=== PATIENT | male | born 1980 | race Caucasian/White ===

== ENCOUNTER → 2016-04-15 | Emergency (ER) | payer SELFPAY | LOC: ED SRH 17:19 | DX: Z53.21 Procedure and treatment not carried out due to patient leaving prior to being seen by health care provider (principal) ==

== ENCOUNTER 2016-05-08 17:19 | Emergency (ER) | payer OTHER ==
--- NOTE | 2016-05-08 17:52 | ED NURSING NOTES ---
Clinical Report - Nurses [facility] [address] [place] [address] 05/08/2016 17:21 Patient: LISA TOURE TRIAGE Triage time 17:May 08 2016. Acuity: LEVEL 4. Chief Complaint: LEFT LOWER TOOTHACHE. Alert. No acute distress. --17:29 Ghada Hawkins R.N. 17:25 05/08/16. BP: 130/75. HR: 115. RR: 18. O2 saturation: 100%. Temp: 98.1 F. Pain level now 10. --17:29 Ghada Hawkins R.N. Weight: 63.5 kg stated. Height/Length: 71 inches Per Patient. BMI: 19.5. --17:24 Ghada Hawkins R.N. Medications None. --17:27 Ghada Hawkins R.N. Medication/allergy information source: the patient. --17:29 Ghada Hawkins R.N. Allergies Augmentin.(hives) Tramadol. ("all bad" "I puke blood") --17:27 Ghada Hawkins R.N. History Arrived by private vehicle. Historian: patient. Accompanied by friend. Primary physician (none). ( "Feels like an Abcess in my left lower tooth". Rash in the right side of the arm.). This started yesterday. He has no dental appointment scheduled. 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 PAST MEDICAL HX: Immunizations: up-to-date. SOCIAL HX: Heavy tobacco smoker (cigarette)- less than 1 pack per day. History of drug use: marijuana. No alcohol use. FALL RISK ASSESSMENT: Fall risk assessment completed. No fall risk identified. NUTRITIONAL RISK ASSESSMENT: The nutritional risk assessment revealed no deficiencies. FUNCTIONAL ASSESSMENT: Functional assessment: no impairments noted. LEARNING NEEDS ASSESSMENT: The learning needs assessment revealed no barriers. SKIN INTEGRITY ASSESSMENT: Skin integrity risk assessment completed. No skin integrity risk identified. --17:29 Ross, Ghada, R.N. PROBLEMS: Back Pain. Sciatica. Abdominal Pain. Laceration. Depression. Anxiety Reaction. Fractured Phalanx (Toe). Scabies. Insect Bite(s). Burn. Crush Injury, Upper Extremity. Abrasion(s). Tetanus Status. Immunizations. Asthma. --17:28 Ghada Hawkins R.N. ADDITIONAL SURGERIES: Hand surgery . Left hand surgery. --17:28 Ghada Hawkins R.N. Interventions ID band on patient. To room. --17:29 Ghada Hawkins R.N. PHYSICAL ASSESSMENT Ambulatory to room. GENERAL / NEURO / PSYCH: Alert. Oriented X 4. Appears in no acute distress. HEENT: Dental decay (left lower molar area). SKIN: Skin rash (Right Forearm). --18:02 Ghada Hawkins R.N. NURSING PROGRESS NOTES Patient ready for evaluation- ED physician and STAGING TECHNICIAN notified. --17:30 Ghada Hawkins R.N. DISPOSITION / DISCHARGE Departure time: 18:May 08 2016. Condition at departure: improved and stable. No learning barriers present. Patient verbalized understanding. Written instructions provided in Arabic. The patient was discharged by the nurse practitioner. He was discharged home and accompanied by materials specialist. He left the Emergency Department ambulatory. Integrated Logistics Programs Director driving. --18:02 Ghada Hawkins R.N. Locked/Released at 05/10/2016 8:38 by Gloria Alfaro R.N.
--- NOTE | 2016-05-08 17:52 | ED CLINICAL REPORT ---
Clinical Report - Physicians/Mid Levels [facility] [address] [place] [address] 05/08/2016 17:21 Patient: LISA TOURE Time Seen: 17:30; initial patient contact, initial documentation, patient care assumed. Arrived- By private vehicle. Historian- patient. HISTORY OF PRESENT ILLNESS Chief Complaint: DENTAL PAIN. This started years and is still present (worse since yesterday). Pain described as severe. No sore throat, mouth sores or nasal discharge or congestion. He has had severe toothache involving a single tooth (left lower incisor). He has had swelling of the face. (tooth broke long time ago, no dentist and states he doesn't know where one is, yesterday tooth started to hurt and face is swollen). Similar symptoms previously: Chronically, as bad. Recent medical care: Not recently seen/assessed. REVIEW OF SYSTEMS No fever or difficulty breathing. He has had a mild skin rash consisting of "redness" located on the right forearm (yesterday). Skin rash is not itchy or painful. All systems otherwise negative, except as recorded above. PAST HISTORY See nurses notes. PROBLEMS: Back Pain. Sciatica. Abdominal Pain. Laceration. Depression. Anxiety Reaction. Fractured Phalanx (Toe). Scabies. Insect Bite(s). Burn. Crush Injury, Upper Extremity. Abrasion(s). Tetanus Status. Immunizations. Asthma. --17:28 Ghada Hawkins R.N. ADDITIONAL SURGERIES: Hand surgery . Left hand surgery. --17:28 Ghada Hawkins R.N. SOCIAL HISTORY Heavy tobacco smoker. History of heavy drug use: methamphetamines, marijuana. No alcohol use. No recent travel. Is a local resident. FAMILY HISTORY Negative. ADDITIONAL NOTES The nursing notes have been reviewed with agreement regarding the chief complaint, HPI, ROS, PMH and patient medications and allergies. PHYSICAL EXAM Vital Signs: 05/08/2016 17:25 BP: 130/75. HR: 115. RR: 18. O2 saturation: 100%. Temp: 98.1 F. Have been reviewed as abnormal and appear to be correct. Blood pressure normal. Tachycardic. Respiratory rate normal. Temperature normal. Oxygen saturation normal. Appearance: Alert. No acute distress. Head: Normal external inspection. Eyes: Pupils equal, round and reactive to light. Conjunctivae and eyelids normal. ENT: Extensive dental decay (lower left lateral incisor). Ears normal. Nose normal. Pharynx normal. Lips normal. Gums normal. No trismus present. Uvula midline. Neck: Normal inspection. Trachea midline. No adenopathy. Thyroid normal. Neck supple. Respiratory: No respiratory distress. Skin: Normal skin color. No rash. Normal skin turgor. Extremities: Extremities exhibit normal ROM. Extremities nontender. Neuro: Oriented X 3. No motor deficit. No sensory deficit. PROGRESS AND PROCEDURES Course of Care: 17:53 05/08/16. pt has ginette, with recommendations, no narcs or controlled substances, pt enrolled in [facility], [place], behavioral [facility], see report for full details. Patient counseled in person regarding the patient's stable condition and diagnosis. 17:51. Differential Diagnosis: I considered contact dermatitis, cellulitis, impetigo, yeast infection, type 1 hypersensitivity, drug eruption, toxic epidermal necrolysis, idiopathic urticaria, erythema multiforme, erythema nodosum, chemical exposure, bite(s) and sting as a possible cause of rash in this patient. This is a partial list of diagnoses considered. Other possible considerations: substance abuse, dental abscess, caries, pain. Disposition: Discharged home in good and unchanged condition. Condition: good and stable. CLINICAL IMPRESSION Dental caries (extensive decay) Mild irritative contact dermatitis. INSTRUCTIONS Warnings: GENERAL WARNINGS: Return or contact your physician immediately if your condition worsens or changes unexpectedly, if not improving as expected, or if other problems arise. Specifically return if problem worsens. Prescription Medications: Keflex 500 mg: take 1 capsule orally every 6 hours for 7 days. No refills. Substitution is permissible. Naprosyn 500 mg tablets: take 1 orally every 12 hours as needed for pain. Dispense twenty (20). No refills. Substitution is permissible. Follow-up: Follow up with a dentist in about three days even if well. Call for an appointment. Summary of care provided to patient. Understanding of the discharge instructions verbalized by patient. (Electronically signed by Stacia Menjivar A.R.N.P. 05/08/2016 21:14)
--- NOTE | 2016-05-08 17:52 | ED NURSING NOTES ---
Clinical Report - Nurses [facility] [address] [place] [address] 05/08/2016 17:21 Patient: LISA TOURE TRIAGE Triage time 17:May 08 2016. Acuity: LEVEL 4. Chief Complaint: LEFT LOWER TOOTHACHE. Alert. No acute distress. --17:29 Ghada Hawkins R.N. 17:25 05/08/16. BP: 130/75. HR: 115. RR: 18. O2 saturation: 100%. Temp: 98.1 F. Pain level now 10. --17:29 Ghada Hawkins R.N. Weight: 63.5 kg stated. Height/Length: 71 inches Per Patient. BMI: 19.5. --17:24 Ghada Hawkins R.N. Medications None. --17:27 Ghada Hawkins R.N. Medication/allergy information source: the patient. --17:29 Ghada Hawkins R.N. Allergies Augmentin.(hives) Tramadol. ("all bad" "I puke blood") --17:27 Ghada Hawkins R.N. History Arrived by private vehicle. Historian: patient. Accompanied by friend. Primary physician (none). ( "Feels like an Abcess in my left lower tooth". Rash in the right side of the arm.). This started yesterday. He has no dental appointment scheduled. 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 PAST MEDICAL HX: Immunizations: up-to-date. SOCIAL HX: Heavy tobacco smoker (cigarette)- less than 1 pack per day. History of drug use: marijuana. No alcohol use. FALL RISK ASSESSMENT: Fall risk assessment completed. No fall risk identified. NUTRITIONAL RISK ASSESSMENT: The nutritional risk assessment revealed no deficiencies. FUNCTIONAL ASSESSMENT: Functional assessment: no impairments noted. LEARNING NEEDS ASSESSMENT: The learning needs assessment revealed no barriers. SKIN INTEGRITY ASSESSMENT: Skin integrity risk assessment completed. No skin integrity risk identified. --17:29 Ross, Ghada, R.N. PROBLEMS: Back Pain. Sciatica. Abdominal Pain. Laceration. Depression. Anxiety Reaction. Fractured Phalanx (Toe). Scabies. Insect Bite(s). Burn. Crush Injury, Upper Extremity. Abrasion(s). Tetanus Status. Immunizations. Asthma. --17:28 Ghada Hawkins R.N. ADDITIONAL SURGERIES: Hand surgery . Left hand surgery. --17:28 Ghada Hawkins R.N. Interventions ID band on patient. To room. --17:29 Ghada Hawkins R.N. PHYSICAL ASSESSMENT Ambulatory to room. GENERAL / NEURO / PSYCH: Alert. Oriented X 4. Appears in no acute distress. HEENT: Dental decay (left lower molar area). SKIN: Skin rash (Right Forearm). --18:02 Ghada Hawkins R.N. NURSING PROGRESS NOTES Patient ready for evaluation- ED physician and FOOD BROKER notified. --17:30 Ghada Hawkins R.N. DISPOSITION / DISCHARGE Departure time: 18:May 08 2016. Condition at departure: improved and stable. No learning barriers present. Patient verbalized understanding. Written instructions provided in Thai. The patient was discharged by the nurse practitioner. He was discharged home and accompanied by switchboard mechanic. He left the Emergency Department ambulatory. Miter Saw Operator driving. --18:02 Ghada Hawkins R.N. Locked/Released at 05/10/2016 8:38 by Gloria Alfaro R.N.
--- NOTE | 2016-05-10 08:38 | ED MED RECONCILIATION SUMMARY ---
Patient: LISA TOURE Medication Reconciliation Report Merged With [facility] VisitID: [id number] [address] [place] [address] 35y, M Registration Date/Time: 05/08/2016 Weight: 63.5 kg Height/Length: 71 in. BMI: 19.5 ALLERGIES: Augmentin, Tramadol The patient's Home Medications are listed below: NONE. The source(s) of the original Home Medication information: patient The following Medications were given to the patient in the Emergency Department: None. The following Medications were prescribed to the patient: Keflex 500 mg: take 1 capsule orally every 6 hours for 7 days. No refills. Substitution is permissible. -- Stacia Menjivar A.R.N.P. Naprosyn 500 mg tablets: take 1 orally every 12 hours as needed for pain. Dispense twenty (20). No refills. Substitution is permissible. -- Stacia Menjivar A.RValentinaN.P.
--- NOTE | 2016-05-10 08:38 | ED DISCHARGE INSTRUCTIONS ---
Patient: LISA TOURE General Instructions [facility] VisitID: [id number] [place] [address] 35y, M Registration Date/Time: 05/08/2016 Dental caries (extensive decay) Mild irritative contact dermatitis. INSTRUCTIONS Warnings: GENERAL WARNINGS: Return or contact your physician immediately if your condition worsens or changes unexpectedly, if not improving as expected, or if other problems arise. Specifically return if problem worsens. Prescription Medications: Keflex 500 mg: take 1 capsule orally every 6 hours for 7 days. No refills. Substitution is permissible. Naprosyn 500 mg tablets: take 1 orally every 12 hours as needed for pain. Dispense twenty (20). No refills. Substitution is permissible. Follow-up: Follow up with a dentist in about three days even if well. Call for an appointment. Summary of care provided to patient. Understanding of the discharge instructions verbalized by patient. ADDITIONAL INFORMATION Dental Cavity A dental cavity is a pit or crater in the enamel surface of the tooth. This exposes the sensitive inner layer of the tooth and causes pain. If untreated, the cavity will get bigger and may cause an infection or abscess in the root of the tooth. An infection in the tooth is a much more serious problem and may require a root canal or removal of the entire tooth. The tooth pain may be made worse by drinking hot or cold fluids. It may spread from the tooth to the ear or jaw on the same side. Home Care: Avoid hot and cold foods, and liquids since your tooth may be sensitive to temperature changes. If your tooth is chipped or cracked, or if there is a large open cavity, apply OIL OF CLOVES (available aroi-cxp-kmiifpr in drug stores) directly to the tooth to reduce pain. Some pharmacies carry an vaak-sjl-fevsicj "toothache kit." This contains oil of cloves and a paste, which can be applied over the exposed tooth to decrease sensitivity. An ice pack on your jaw over the sore area may help to reduce pain. You may use acetaminophen (Tylenol) or ibuprofen (Motrin, Advil) to control pain, unless another pain medicine was prescribed. [ NOTE: If you have liver disease or ever had a stomach ulcer, talk with your doctor before using these medicines.] If you have signs of an infection, an antibiotic will be given. Take it as directed. Follow-Up with your dentist as directed. Although your pain may go away with the treatment given, only a dentist can fully evaluate and treat this problem to prevent further tooth damage. Get Prompt Medical Attention if any of the following occur: Redness or swelling of the face Pain worsens or spreads to the neck Fever over 100.5 F (38C) Unusual drowsiness; headache or stiff neck; weakness or fainting Pus drains from the tooth or gum Difficulty swallowing or breathing Dental Pain A crack or cavity in the tooth, which exposes the sensitive inner area of the tooth can cause tooth pain. An infection in the gum or the root of the tooth can cause pain and swelling. The pain is often made worse by drinking hot or cold fluids, or biting on hard foods. Pain may spread from the tooth to the ear or jaw on the same side. Home Care: Avoid hot and cold foods and liquids since your tooth may be sensitive to temperature changes. If your tooth is chipped or cracked, or if there is a large open cavity, apply OIL OF CLOVES (available pfml-ixn-azeftiv in drug stores) directly to the tooth to reduce pain. Some pharmacies carry an vxvg-wtx-scsmlme "toothache kit." This contains a paste, which can be applied over the exposed tooth to decrease sensitivity. A cold pack on your jaw over the sore area may help reduce pain. You may use acetaminophen (Tylenol) or ibuprofen (Motrin, Advil) to control pain, unless another medicine was prescribed. [ NOTE: If you have chronic liver or kidney disease or ever had a stomach ulcer or GI bleeding, talk with your doctor before using these medicines.] If you have signs of an infection, an antibiotic will be given. Take it as directed. Follow-Up as directed with a dentist. Your pain may go away with the treatment given. However, only a dentist can fully evaluate and treat the cause and prevent the pain from coming back again. TOOTHACHE IS A SIGN OF DISEASE IN YOUR TOOTH AND SHOULD BE EXAMINED AND TREATED BY A DENTIST. Get Prompt Medical Attention if any of the following occur: Your face becomes swollen or red Pain worsens or spreads to the neck Fever over 100.4 F (38.0 C) Unusual drowsiness; headache or stiff neck; weakness or fainting Pus drains from the tooth Difficulty swallowing or breathing Dermatitis (Non-Specific) Dermatitis is an inflammation of the skin. The exact cause of your rash is not certain. However, this rash does not appear to be an infection or contagious illness. Taking care of the rash at home should help relieve your symptoms. Home Care: Keep the areas of rash clean by washing it daily. This also helps to keep the skin moist. Use a neutral pH soap such as Dove or Lever 2000. Apply a moisturizing lotion after bathing to prevent dry skin. Avoid skin irritants (wool or silk clothing, grease, oils, some medicines, harsh soaps, and detergents). Wear absorbent, soft fabrics next to the skin rather than rough or scratchy materials. Unless another medicine was prescribed, you may use Hydrocortisone cream (which you can get without a prescription) to reduce the inflammation. Follow Up: Make an appointment with your doctor in the next 1 to 2 weeks if your symptoms do not improve with the above measures. Get Prompt Medical Attention if any of the following occur: Increasing area of redness or pain in the skin Yellow crusts or drainage from the rash Joint pain New rash that appears in other areas of the body Fever of 100.4F (38C) or higher, or as directed by your healthcare provider Cephalexin Monohydrate Oral tablet What is this medicine? CEPHALEXIN (sef a RONN in) is a cephalosporin antibiotic. It is used to treat certain kinds of bacterial infections It will not work for colds, flu, or other viral infections. How should I use this medicine? Take this medicine by mouth with a full glass of water. Follow the directions on the prescription label. This medicine can be taken with or without food. Take your medicine at regular intervals. Do not take your medicine more often than directed. Take all of your medicine as directed even if you think you are better. Do not skip doses or stop your medicine early. Talk to your counter weigher regarding the use of this medicine in children. While this drug may be prescribed for selected conditions, precautions do apply. What side effects may I notice from receiving this medicine? Side effects that you should report to your doctor or health resident care assistant as soon as possible: allergic reactions like skin rash, itching or hives, swelling of the face, lips, or tongue breathing problems pain or trouble passing urine redness, blistering, peeling or loosening of the skin, including inside the mouth severe or watery diarrhea unusually weak or tired yellowing of the eyes, skin Side effects that usually do not require medical attention (report to your doctor or health resident care assistant if they continue or are bothersome): gas or heartburn genital or anal irritation headache joint or muscle pain nausea, vomiting What may interact with this medicine? probenecid some other antibiotics What if I miss a dose? If you miss a dose, take it as soon as you can. If it is almost time for your next dose, take only that dose. Do not take double or extra doses. There should be at least 4 to 6 hours between doses. Where should I keep my medicine? Keep out of the reach of children. Store at room temperature between 59 and 86 degrees F (15 and 30 degrees C). Throw away any unused medicine after the expiration date. What should I tell my health care provider before I take this medicine? They need to know if you have any of these conditions: kidney disease stomach or intestine problems, especially colitis an unusual or allergic reaction to cephalexin, other cephalosporins, penicillins, other antibiotics, medicines, foods, dyes or preservatives or trying to get breast-feeding What should I watch for while using this medicine? Tell your doctor or health resident care assistant if your symptoms do not begin to improve in a few days. Do not treat diarrhea with over the counter products. Contact your doctor if you have diarrhea that lasts more than 2 days or if it is severe and watery. If you have diabetes, you may get a false-positive result for sugar in your urine. Check with your doctor or health resident care assistant. Naproxen Sodium Oral tablet What is this medicine? NAPROXEN (na PROX en) is a non-steroidal anti-inflammatory drug (NSAID). It is used to reduce swelling and to treat pain. This medicine may be used for dental pain, headache, or painful monthly periods. It is also used for painful joint and muscular problems such as arthritis, tendinitis, bursitis, and gout. How should I use this medicine? Take this medicine by mouth with a glass of water. Follow the directions on the prescription label. Take it with food if your stomach gets upset. Try to not lie down for at least 10 minutes after you take it. Take your medicine at regular intervals. Do not take your medicine more often than directed. Long-term, continuous use may increase the risk of heart attack or stroke. A special MedGuide will be given to you by the pharmacist with each prescription and refill. Be sure to read this information carefully each time. Talk to your counter weigher regarding the use of this medicine in children. Special care may be needed. What side effects may I notice from receiving this medicine? Side effects that you should report to your doctor or health resident care assistant as soon as possible: black or bloody stools, blood in the urine or vomit blurred vision chest pain difficulty breathing or wheezing nausea or vomiting severe stomach pain skin rash, skin redness, blistering or peeling skin, hives, or itching slurred speech or weakness on one side of the body swelling of eyelids, throat, lips unexplained weight gain or swelling unusually weak or tired yellowing of eyes or skin Side effects that usually do not require medical attention (report to your doctor or health resident care assistant if they continue or are bothersome): constipation headache heartburn What may interact with this medicine? alcohol aspirin cidofovir diuretics lithium methotrexate other drugs for inflammation like ketorolac or prednisone pemetrexed probenecid warfarin What if I miss a dose? If you miss a dose, take it as soon as you can. If it is almost time for your next dose, take only that dose. Do not take double or extra doses. Where should I keep my medicine? Keep out of the reach of children. Store at room temperature between 15 and 30 degrees C (59 and 86 degrees F). Keep container tightly closed. Throw away any unused medicine after the expiration date. What should I tell my health care provider before I take this medicine? They need to know if you have any of these conditions: asthma cigarette smoker drink more than 3 alcohol containing drinks a day heart disease or circulation problems such as heart failure or leg edema (fluid retention) high blood pressure kidney disease liver disease stomach bleeding or ulcers an unusual or allergic reaction to naproxen, aspirin, other NSAIDs, other medicines, foods, dyes, or preservatives or trying to get breast-feeding What should I watch for while using this medicine? Tell your doctor or health resident care assistant if your pain does not get better. Talk to your doctor before taking another medicine for pain. Do not treat yourself. This medicine does not prevent heart attack or stroke. In fact, this medicine may increase the chance of a heart attack or stroke. The chance may increase with longer use of this medicine and in people who have heart disease. If you take aspirin to prevent heart attack or stroke, talk with your doctor or health resident care assistant. Do not take other medicines that contain aspirin, ibuprofen, or naproxen with this medicine. Side effects such as stomach upset, nausea, or ulcers may be more likely to occur. Many medicines available without a prescription should not be taken with this medicine. This medicine can cause ulcers and bleeding in the stomach and intestines at any time during treatment. Do not smoke cigarettes or drink alcohol. These increase irritation to your stomach and can make it more susceptible to damage from this medicine. Ulcers and bleeding can happen without warning symptoms and can cause . You may get drowsy or dizzy. Do not drive, use machinery, or do anything that needs mental alertness until you know how this medicine affects you. Do not stand or sit up quickly, especially if you are an older patient. This reduces the risk of dizzy or fainting spells. This medicine can cause you to bleed more easily. Try to avoid damage to your teeth and gums when you brush or floss your teeth. You have been given the following additional information: Dental Cavity Dental Pain Dermatitis, Non-Specific Cephalexin Monohydrate Oral tablet Naproxen Sodium Oral tablet (Electronically signed by Stacia Menjivar A.R.N.P. 05/08/2016 21:14)
--- NOTE | 2016-05-10 08:38 | ED MAR SUMMARY ---
..... Medication Administration Record [facility] [address] [place] [address] Patient: LISA TOURE Visit ID: [id number] 35y, M Weight: 63.5 kg Height/Length: 71 in BMI: 19.5 ALLERGIES: Augmentin, Tramadol
--- NOTE | 2016-05-10 08:38 | ED DISCHARGE INSTRUCTIONS ---
Patient: LISA TOURE General Instructions [facility] VisitID: [id number] [place] [address] 35y, M Registration Date/Time: 05/08/2016 Dental caries (extensive decay) Mild irritative contact dermatitis. INSTRUCTIONS Warnings: GENERAL WARNINGS: Return or contact your physician immediately if your condition worsens or changes unexpectedly, if not improving as expected, or if other problems arise. Specifically return if problem worsens. Prescription Medications: Keflex 500 mg: take 1 capsule orally every 6 hours for 7 days. No refills. Substitution is permissible. Naprosyn 500 mg tablets: take 1 orally every 12 hours as needed for pain. Dispense twenty (20). No refills. Substitution is permissible. Follow-up: Follow up with a dentist in about three days even if well. Call for an appointment. Summary of care provided to patient. Understanding of the discharge instructions verbalized by patient. ADDITIONAL INFORMATION Dental Cavity A dental cavity is a pit or crater in the enamel surface of the tooth. This exposes the sensitive inner layer of the tooth and causes pain. If untreated, the cavity will get bigger and may cause an infection or abscess in the root of the tooth. An infection in the tooth is a much more serious problem and may require a root canal or removal of the entire tooth. The tooth pain may be made worse by drinking hot or cold fluids. It may spread from the tooth to the ear or jaw on the same side. Home Care: Avoid hot and cold foods, and liquids since your tooth may be sensitive to temperature changes. If your tooth is chipped or cracked, or if there is a large open cavity, apply OIL OF CLOVES (available zdaj-hmd-hxbtlks in drug stores) directly to the tooth to reduce pain. Some pharmacies carry an azhv-nje-dbaophb "toothache kit." This contains oil of cloves and a paste, which can be applied over the exposed tooth to decrease sensitivity. An ice pack on your jaw over the sore area may help to reduce pain. You may use acetaminophen (Tylenol) or ibuprofen (Motrin, Advil) to control pain, unless another pain medicine was prescribed. [ NOTE: If you have liver disease or ever had a stomach ulcer, talk with your doctor before using these medicines.] If you have signs of an infection, an antibiotic will be given. Take it as directed. Follow-Up with your dentist as directed. Although your pain may go away with the treatment given, only a dentist can fully evaluate and treat this problem to prevent further tooth damage. Get Prompt Medical Attention if any of the following occur: Redness or swelling of the face Pain worsens or spreads to the neck Fever over 100.5 F (38C) Unusual drowsiness; headache or stiff neck; weakness or fainting Pus drains from the tooth or gum Difficulty swallowing or breathing Dental Pain A crack or cavity in the tooth, which exposes the sensitive inner area of the tooth can cause tooth pain. An infection in the gum or the root of the tooth can cause pain and swelling. The pain is often made worse by drinking hot or cold fluids, or biting on hard foods. Pain may spread from the tooth to the ear or jaw on the same side. Home Care: Avoid hot and cold foods and liquids since your tooth may be sensitive to temperature changes. If your tooth is chipped or cracked, or if there is a large open cavity, apply OIL OF CLOVES (available qfrn-zwz-ddclfgh in drug stores) directly to the tooth to reduce pain. Some pharmacies carry an xpue-vab-vldyoxd "toothache kit." This contains a paste, which can be applied over the exposed tooth to decrease sensitivity. A cold pack on your jaw over the sore area may help reduce pain. You may use acetaminophen (Tylenol) or ibuprofen (Motrin, Advil) to control pain, unless another medicine was prescribed. [ NOTE: If you have chronic liver or kidney disease or ever had a stomach ulcer or GI bleeding, talk with your doctor before using these medicines.] If you have signs of an infection, an antibiotic will be given. Take it as directed. Follow-Up as directed with a dentist. Your pain may go away with the treatment given. However, only a dentist can fully evaluate and treat the cause and prevent the pain from coming back again. TOOTHACHE IS A SIGN OF DISEASE IN YOUR TOOTH AND SHOULD BE EXAMINED AND TREATED BY A DENTIST. Get Prompt Medical Attention if any of the following occur: Your face becomes swollen or red Pain worsens or spreads to the neck Fever over 100.4 F (38.0 C) Unusual drowsiness; headache or stiff neck; weakness or fainting Pus drains from the tooth Difficulty swallowing or breathing Dermatitis (Non-Specific) Dermatitis is an inflammation of the skin. The exact cause of your rash is not certain. However, this rash does not appear to be an infection or contagious illness. Taking care of the rash at home should help relieve your symptoms. Home Care: Keep the areas of rash clean by washing it daily. This also helps to keep the skin moist. Use a neutral pH soap such as Dove or Lever 2000. Apply a moisturizing lotion after bathing to prevent dry skin. Avoid skin irritants (wool or silk clothing, grease, oils, some medicines, harsh soaps, and detergents). Wear absorbent, soft fabrics next to the skin rather than rough or scratchy materials. Unless another medicine was prescribed, you may use Hydrocortisone cream (which you can get without a prescription) to reduce the inflammation. Follow Up: Make an appointment with your doctor in the next 1 to 2 weeks if your symptoms do not improve with the above measures. Get Prompt Medical Attention if any of the following occur: Increasing area of redness or pain in the skin Yellow crusts or drainage from the rash Joint pain New rash that appears in other areas of the body Fever of 100.4F (38C) or higher, or as directed by your healthcare provider Cephalexin Monohydrate Oral tablet What is this medicine? CEPHALEXIN (sef a RONN in) is a cephalosporin antibiotic. It is used to treat certain kinds of bacterial infections It will not work for colds, flu, or other viral infections. How should I use this medicine? Take this medicine by mouth with a full glass of water. Follow the directions on the prescription label. This medicine can be taken with or without food. Take your medicine at regular intervals. Do not take your medicine more often than directed. Take all of your medicine as directed even if you think you are better. Do not skip doses or stop your medicine early. Talk to your tray checker regarding the use of this medicine in children. While this drug may be prescribed for selected conditions, precautions do apply. What side effects may I notice from receiving this medicine? Side effects that you should report to your doctor or health home care scheduler as soon as possible: allergic reactions like skin rash, itching or hives, swelling of the face, lips, or tongue breathing problems pain or trouble passing urine redness, blistering, peeling or loosening of the skin, including inside the mouth severe or watery diarrhea unusually weak or tired yellowing of the eyes, skin Side effects that usually do not require medical attention (report to your doctor or health home care scheduler if they continue or are bothersome): gas or heartburn genital or anal irritation headache joint or muscle pain nausea, vomiting What may interact with this medicine? probenecid some other antibiotics What if I miss a dose? If you miss a dose, take it as soon as you can. If it is almost time for your next dose, take only that dose. Do not take double or extra doses. There should be at least 4 to 6 hours between doses. Where should I keep my medicine? Keep out of the reach of children. Store at room temperature between 59 and 86 degrees F (15 and 30 degrees C). Throw away any unused medicine after the expiration date. What should I tell my health care provider before I take this medicine? They need to know if you have any of these conditions: kidney disease stomach or intestine problems, especially colitis an unusual or allergic reaction to cephalexin, other cephalosporins, penicillins, other antibiotics, medicines, foods, dyes or preservatives or trying to get breast-feeding What should I watch for while using this medicine? Tell your doctor or health home care scheduler if your symptoms do not begin to improve in a few days. Do not treat diarrhea with over the counter products. Contact your doctor if you have diarrhea that lasts more than 2 days or if it is severe and watery. If you have diabetes, you may get a false-positive result for sugar in your urine. Check with your doctor or health home care scheduler. Naproxen Sodium Oral tablet What is this medicine? NAPROXEN (na PROX en) is a non-steroidal anti-inflammatory drug (NSAID). It is used to reduce swelling and to treat pain. This medicine may be used for dental pain, headache, or painful monthly periods. It is also used for painful joint and muscular problems such as arthritis, tendinitis, bursitis, and gout. How should I use this medicine? Take this medicine by mouth with a glass of water. Follow the directions on the prescription label. Take it with food if your stomach gets upset. Try to not lie down for at least 10 minutes after you take it. Take your medicine at regular intervals. Do not take your medicine more often than directed. Long-term, continuous use may increase the risk of heart attack or stroke. A special MedGuide will be given to you by the pharmacist with each prescription and refill. Be sure to read this information carefully each time. Talk to your tray checker regarding the use of this medicine in children. Special care may be needed. What side effects may I notice from receiving this medicine? Side effects that you should report to your doctor or health home care scheduler as soon as possible: black or bloody stools, blood in the urine or vomit blurred vision chest pain difficulty breathing or wheezing nausea or vomiting severe stomach pain skin rash, skin redness, blistering or peeling skin, hives, or itching slurred speech or weakness on one side of the body swelling of eyelids, throat, lips unexplained weight gain or swelling unusually weak or tired yellowing of eyes or skin Side effects that usually do not require medical attention (report to your doctor or health home care scheduler if they continue or are bothersome): constipation headache heartburn What may interact with this medicine? alcohol aspirin cidofovir diuretics lithium methotrexate other drugs for inflammation like ketorolac or prednisone pemetrexed probenecid warfarin What if I miss a dose? If you miss a dose, take it as soon as you can. If it is almost time for your next dose, take only that dose. Do not take double or extra doses. Where should I keep my medicine? Keep out of the reach of children. Store at room temperature between 15 and 30 degrees C (59 and 86 degrees F). Keep container tightly closed. Throw away any unused medicine after the expiration date. What should I tell my health care provider before I take this medicine? They need to know if you have any of these conditions: asthma cigarette smoker drink more than 3 alcohol containing drinks a day heart disease or circulation problems such as heart failure or leg edema (fluid retention) high blood pressure kidney disease liver disease stomach bleeding or ulcers an unusual or allergic reaction to naproxen, aspirin, other NSAIDs, other medicines, foods, dyes, or preservatives or trying to get breast-feeding What should I watch for while using this medicine? Tell your doctor or health home care scheduler if your pain does not get better. Talk to your doctor before taking another medicine for pain. Do not treat yourself. This medicine does not prevent heart attack or stroke. In fact, this medicine may increase the chance of a heart attack or stroke. The chance may increase with longer use of this medicine and in people who have heart disease. If you take aspirin to prevent heart attack or stroke, talk with your doctor or health home care scheduler. Do not take other medicines that contain aspirin, ibuprofen, or naproxen with this medicine. Side effects such as stomach upset, nausea, or ulcers may be more likely to occur. Many medicines available without a prescription should not be taken with this medicine. This medicine can cause ulcers and bleeding in the stomach and intestines at any time during treatment. Do not smoke cigarettes or drink alcohol. These increase irritation to your stomach and can make it more susceptible to damage from this medicine. Ulcers and bleeding can happen without warning symptoms and can cause . You may get drowsy or dizzy. Do not drive, use machinery, or do anything that needs mental alertness until you know how this medicine affects you. Do not stand or sit up quickly, especially if you are an older patient. This reduces the risk of dizzy or fainting spells. This medicine can cause you to bleed more easily. Try to avoid damage to your teeth and gums when you brush or floss your teeth. You have been given the following additional information: Dental Cavity Dental Pain Dermatitis, Non-Specific Cephalexin Monohydrate Oral tablet Naproxen Sodium Oral tablet (Electronically signed by Stacia Menjivar A.R.N.P. 05/08/2016 21:14)
--- NOTE | 2016-05-10 08:38 | ED MED RECONCILIATION SUMMARY ---
Patient: LISA TOURE Medication Reconciliation Report [facility] VisitID: [id number] [address] [place] [address] 35y, M Registration Date/Time: 05/08/2016 Weight: 63.5 kg Height/Length: 71 in. BMI: 19.5 ALLERGIES: Augmentin, Tramadol The patient's Home Medications are listed below: NONE. The source(s) of the original Home Medication information: patient The following Medications were given to the patient in the Emergency Department: None. The following Medications were prescribed to the patient: Keflex 500 mg: take 1 capsule orally every 6 hours for 7 days. No refills. Substitution is permissible. -- Stacia Menjivar A.R.N.P. Naprosyn 500 mg tablets: take 1 orally every 12 hours as needed for pain. Dispense twenty (20). No refills. Substitution is permissible. -- Stacia Menjivar A.RValentinaN.P.
--- NOTE | 2016-05-10 08:38 | ED MAR SUMMARY ---
..... Medication Administration Record [facility] [address] [place] [address] Patient: LISA TOURE Visit ID: [id number] 35y, M Weight: 63.5 kg Height/Length: 71 in BMI: 19.5 ALLERGIES: Augmentin, Tramadol
== END 2016-05-08 18:00 | disposition home or self-care (01) ==
LOC: ED SRH 17:19
DX: K02.9 Dental caries, unspecified (principal); L25.9 Unspecified contact dermatitis, unspecified cause; F17.210 Nicotine dependence, cigarettes, uncomplicated; F19.10 Other psychoactive substance abuse, uncomplicated; Z88.8 Allergy status to other drugs, medicaments and biological substances

== ENCOUNTER 2016-08-07 03:42 | Emergency (ER) | payer OTHER ==
--- NOTE | 2016-08-07 04:57 | ED NURSING NOTES ---
Clinical Report - Nurses [facility] [address] [place] [address] 08/07/2016 3:42 Patient: LISA TOURE TRIAGE Triage time 04:01. Acuity: LEVEL 4. Chief Complaint: INJURY TO RIGHT HAND. 04:04. Alert. SEPSIS SCREEN: Sepsis Screen. Negative (no infection suspected/documented). --04:04 Alcides Coffey R.N. 04:01 08/07/16. BP: 124/75. HR: 92. RR: 14. O2 saturation: 100% on room air. Temp: 98.3 F (oral). Pain level now: 09/03. --04:04 Alcides Coffey R.N. Weight: 65.7 kg stated. Height/Length: 70 inches Per Patient. BMI: 20.8. --04:03 Alcides Coffey R.N. Medications None. --04:03 Alcides Coffey R.N. Medication/allergy information source: the patient. --04:04 Alcides Coffey R.N. Allergies Augmentin.(hives) Tramadol. ("all bad" "I puke blood") --04:03 Alcides Coffey R.N. History Arrived by private vehicle. Historian: patient. Accompanied by friend. Primary physician (None). This occurred (2 days ago). Occurred at home. Mechanism of injury: (Punched car door). 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 PAST MEDICAL HX: Tetanus status: up-to-date. Immunizations: up-to-date. SOCIAL HX: Current every day heavy tobacco smoker- 1 pack per day. History of drug use: marijuana. (daily). No alcohol use. No infectious disease exposure. ABUSE ASSESSMENT: No report of abuse. FALL RISK ASSESSMENT: Fall risk assessment completed. No fall risk identified. NUTRITIONAL RISK ASSESSMENT: The nutritional risk assessment revealed no deficiencies. FUNCTIONAL ASSESSMENT: Functional assessment: no impairments noted. LEARNING NEEDS ASSESSMENT: The learning needs assessment revealed no barriers. SKIN INTEGRITY ASSESSMENT: Skin integrity risk assessment completed. No skin integrity risk identified. --04:04 Alcides Coffey R.N. PROBLEMS: Sciatica. Depression. Anxiety Reaction. Scabies. Asthma. --04:03 Alcides Coffey R.N. ADDITIONAL SURGERIES: Left hand surgery. --04:03 Alcides Coffey R.N. Interventions ID band on patient. To treatment room. --04:04 Alcides Coffey R.N. PHYSICAL ASSESSMENT 04:05. Ambulatory to room. GENERAL / NEURO / PSYCH: Oriented X 4. Alert. EXTREMITIES: Dorsal right hand: swelling. SKIN: Skin is warm and dry. --04:05 Alcides Coffey R.N. NURSING PROGRESS NOTES 04:05. Two patient identifiers checked. Call light placed in reach. Bed placed in lowest position. Brakes of bed on. Patient ready for evaluation- chart flagged. --04:05 Alcides Coffey R.N. 04:09 Portable x-ray right hand. --04:16 Alcides Coffey R.N. 05:04. The patient is calm and resting quietly. GENERAL / NEURO / PSYCH: Alert. Oriented X 4. RESPIRATORY: No respiratory distress. EXTREMITIES: Neuro-vascular status intact to the extremity. SKIN: Skin is warm and dry. --05:10 Alcides Coffey R.N. DISPOSITION / DISCHARGE Departure time: 05:09. Condition at departure: stable. No learning barriers present. Discharge instructions provided and reviewed with the patient. Reviewed medication(s) side effects, precautions, dosing and course information. Prescription(s) given to the patient. Patient verbalized understanding. Written instructions provided in Malian. The patient was discharged home and accompanied by call center associate. He left the Emergency Department ambulatory and via private vehicle. Thread Marker driving. FALL RISK ASSESSMENT: Fall risk assessment completed. No fall risk identified. --05:09 Alcides Coffey R.N. 05:00 08/07/16. BP: 134/73. HR: 90. RR: 15. O2 saturation: 100%. Pain level now: 07/04. --05:09 Alcides Coffey R.N. ( While going over discharge instructions pt became angry and began to cuss saying that he was going to another hospital, that the was full of shit, if his hand isn't broken how come he can't move his fingers. Patient requested to see the x-rays, notified Dr. Tejada and walked with pt to the nursing station - Dr. Tejada showed the pt the x-rays and attempted to explain them to the pt, and advised the pt that a radiologist would also look at the x-rays later and if needed the patient would be called.). --05:23 Alcides Coffey R.N. Locked/Released at 08/07/2016 5:38 by Alcides Coffey R.N.
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
--- NOTE | 2016-08-07 04:57 | ED CLINICAL REPORT ---
Clinical Report - Physicians/Mid Levels [facility] [address] [place] [address] 08/07/2016 3:42 Patient: LISA TOURE Arrived- By private vehicle. Historian- patient. HISTORY OF PRESENT ILLNESS Chief Complaint: Injury to the right hand. The injury happened 2 days ago. The patient sustained a direct blow (with a closed fist he struck his car door after getting angry.). Occurred at home. Patient is experiencing moderate pain. No other injury. REVIEW OF SYSTEMS The patient has had new onset of swelling of the right hand (mild). He has had new onset of pain-related weakness of the right index finger (mild). No tingling, numbness or skin laceration. All systems otherwise negative, except as recorded above. PAST HISTORY The patient's dominant hand is the left. Problems: Contact Dermatitis. Dental Caries. Back Pain. Sciatica. Abdominal Pain. Laceration. Depression. Anxiety Reaction. Fractured Phalanx (Toe). Insect Bite(s). Burn. Crush Injury, Upper Extremity. Abrasion(s). Asthma. Additional Surgeries: Hand surgery . Left hand surgery. Medications: None. Allergies: Augmentin.(hives) Tramadol. ("all bad" "I puke blood"). SOCIAL HISTORY Current every day heavy tobacco smoker (cigarette)- 1 pack per day. History of drug use daily: marijuana. No alcohol use. FAMILY HISTORY No significant family medical history. ADDITIONAL NOTES The nursing notes have been reviewed. PHYSICAL EXAM Vital Signs: 08/07/2016 04:01 BP: 124/75. HR: 92. RR: 14. O2 saturation: 100%. Temp: 98.3 F. Pain level now: 7/10. Have been reviewed. Head: Head atraumatic. Eyes: Pupils equal, round and reactive to light. ENT: Pharynx normal. Neck: Neck supple. CVS: Heart sounds normal. Respiratory: Breath sounds normal. Abdomen: No visible injury. Back: Normal inspection. Skin: Skin warm and dry. Extremities: Dorsal right hand: moderate tenderness and mild swelling. No ecchymosis or deformity. No wrist injury. Neuro, Vascular and Tendons: Vascular status intact. Sensation intact. Motor intact. Neuro: No motor deficit. No sensory deficit. LABS, X-RAYS, AND EKG X-Rays: Right hand negative. The X-rays were independently viewed by me. PROGRESS AND PROCEDURES Course of Care: When I informed the patient that I saw no fractures on his Xrays he became agitated and argumentative. I showed him the images but he continued to be agitated. I explained that I would have the radiologist over read the images he said "I am going to another hospital. This place sucks." I did explain he does have a contusion to the hand but no fracture. I also suggested that he has some anger management issues and should consider discussing this with his PCP. Patient/family counseled. Old medical records reviewed. Disposition: Discharged. Condition: stable. CLINICAL IMPRESSION Contusion to the right hand. INSTRUCTIONS Apply ice for 20 minutes four times a day until better. Don't apply ice directly to skin and don't use while asleep. Warnings: GENERAL WARNINGS: Return or contact your physician immediately if your condition worsens or changes unexpectedly, if not improving as expected, or if other problems arise. Prescription Medications: Naproxen 500 mg tablets: take 1 orally every 12 hours as needed for pain. Dispense twenty (20). No refills. Understanding of the discharge instructions verbalized by patient. Follow-up with: [facility], [place], , , [address], , [place], [id number] Follow up in four days if not better. (Electronically signed by Jesse Tejada MD 08/09/2016 9:59)
--- NOTE | 2016-08-07 04:57 | ED NURSING NOTES ---
Clinical Report - Nurses [facility] [address] [place] [address] 08/07/2016 3:42 Patient: LISA TOURE TRIAGE Triage time 04:01. Acuity: LEVEL 4. Chief Complaint: INJURY TO RIGHT HAND. 04:04. Alert. SEPSIS SCREEN: Sepsis Screen. Negative (no infection suspected/documented). --04:04 Alcides Coffey R.N. 04:01 08/07/16. BP: 124/75. HR: 92. RR: 14. O2 saturation: 100% on room air. Temp: 98.3 F (oral). Pain level now: 09/03. --04:04 Alcides Coffey R.N. Weight: 65.7 kg stated. Height/Length: 70 inches Per Patient. BMI: 20.8. --04:03 Alcides Coffey R.N. Medications None. --04:03 Alcides Coffey R.N. Medication/allergy information source: the patient. --04:04 Alcides Coffey R.N. Allergies Augmentin.(hives) Tramadol. ("all bad" "I puke blood") --04:03 Alcides Coffey R.N. History Arrived by private vehicle. Historian: patient. Accompanied by friend. Primary physician (None). This occurred (2 days ago). Occurred at home. Mechanism of injury: (Punched car door). 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 PAST MEDICAL HX: Tetanus status: up-to-date. Immunizations: up-to-date. SOCIAL HX: Current every day heavy tobacco smoker- 1 pack per day. History of drug use: marijuana. (daily). No alcohol use. No infectious disease exposure. ABUSE ASSESSMENT: No report of abuse. FALL RISK ASSESSMENT: Fall risk assessment completed. No fall risk identified. NUTRITIONAL RISK ASSESSMENT: The nutritional risk assessment revealed no deficiencies. FUNCTIONAL ASSESSMENT: Functional assessment: no impairments noted. LEARNING NEEDS ASSESSMENT: The learning needs assessment revealed no barriers. SKIN INTEGRITY ASSESSMENT: Skin integrity risk assessment completed. No skin integrity risk identified. --04:04 Alcides Coffey R.N. PROBLEMS: Sciatica. Depression. Anxiety Reaction. Scabies. Asthma. --04:03 Alcides Coffey R.N. ADDITIONAL SURGERIES: Left hand surgery. --04:03 Alcides Coffey R.N. Interventions ID band on patient. To treatment room. --04:04 Alcides Coffey R.N. PHYSICAL ASSESSMENT 04:05. Ambulatory to room. GENERAL / NEURO / PSYCH: Oriented X 4. Alert. EXTREMITIES: Dorsal right hand: swelling. SKIN: Skin is warm and dry. --04:05 Alcides Coffey R.N. NURSING PROGRESS NOTES 04:05. Two patient identifiers checked. Call light placed in reach. Bed placed in lowest position. Brakes of bed on. Patient ready for evaluation- chart flagged. --04:05 Alcides Coffey R.N. 04:09 Portable x-ray right hand. --04:16 Alcides Coffey R.N. 05:04. The patient is calm and resting quietly. GENERAL / NEURO / PSYCH: Alert. Oriented X 4. RESPIRATORY: No respiratory distress. EXTREMITIES: Neuro-vascular status intact to the extremity. SKIN: Skin is warm and dry. --05:10 Alcides Coffey R.N. DISPOSITION / DISCHARGE Departure time: 05:09. Condition at departure: stable. No learning barriers present. Discharge instructions provided and reviewed with the patient. Reviewed medication(s) side effects, precautions, dosing and course information. Prescription(s) given to the patient. Patient verbalized understanding. Written instructions provided in Haitian. The patient was discharged home and accompanied by sap bods developer. He left the Emergency Department ambulatory and via private vehicle. Silica Filter Operator driving. FALL RISK ASSESSMENT: Fall risk assessment completed. No fall risk identified. --05:09 Alcides Coffey R.N. 05:00 08/07/16. BP: 134/73. HR: 90. RR: 15. O2 saturation: 100%. Pain level now: 07/04. --05:09 Alcides Coffey R.N. ( While going over discharge instructions pt became angry and began to cuss saying that he was going to another hospital, that the was full of shit, if his hand isn't broken how come he can't move his fingers. Patient requested to see the x-rays, notified Dr. Tejada and walked with pt to the nursing station - Dr. Tejada showed the pt the x-rays and attempted to explain them to the pt, and advised the pt that a radiologist would also look at the x-rays later and if needed the patient would be called.). --05:23 Alcides Coffey R.N. Locked/Released at 08/07/2016 5:38 by Alcides Coffey R.N.
--- NOTE | 2016-08-07 04:58 | ED ORDER SUMMARY ---
..... Patient: LISA TOURE OrderSheet [facility] VisitID: [id number] [address] [place] [address] 35y, M Registration Date/Time: 08/07/2016 ORDER SHEET Weight: 65.7 kg (stated) Allergies: Augmentin, Tramadol GENERAL ORDERS: Hand 3 or 4V Right Urgent (04:06 08/07/2016 Melissa Rice per protocol) (4:15 William) MEDICATION ORDERS: IV FLUIDS: ORDER SHEET NOTES: [Electronically signed by Alcides Coffey R.N. (05:38 08/07/2016)] [Electronically signed by Jesse Tejada MD (09:59 08/09/2016)] [Electronically locked/signed by Alcides Coffey R.N. (05:38 08/07/2016)]
--- NOTE | 2016-08-07 04:58 | ED ORDER SUMMARY ---
..... Patient: LISA TOURE OrderSheet [facility] VisitID: [id number] [address] [place] [address] 35y, M Registration Date/Time: 08/07/2016 ORDER SHEET Weight: 65.7 kg (stated) Allergies: Augmentin, Tramadol GENERAL ORDERS: Hand 3 or 4V Right Urgent (04:06 08/07/2016 Melissa Rice per protocol) (4:15 William) MEDICATION ORDERS: IV FLUIDS: ORDER SHEET NOTES: [Electronically signed by Alcides Coffey R.N. (05:38 08/07/2016)] [Electronically signed by Jesse Tejada MD (09:59 08/09/2016)] [Electronically locked/signed by Alcides Coffey R.N. (05:38 08/07/2016)]
--- NOTE | 2016-08-07 06:33 | DIAGNOSTIC IMAGING REPORT ---
PROCEDURE: XR HAND 3 OR 4 VIEWS - RIGHT INDICATION: TRAUMA/INJURY TECHNIQUE: Four views. COMPARISON: None. FINDINGS: Osseous structures and joint spaces are normal. IMPRESSION: 1. Normal right hand.
--- NOTE | 2016-08-09 09:59 | ED MAR SUMMARY ---
..... Medication Administration Record [facility] [address] [place] [address] Patient: LISA TOURE Visit ID: [id number] 35y, M Weight: 65.7 kg Height/Length: 70 in BMI: 20.8 ALLERGIES: Augmentin, Tramadol
--- NOTE | 2016-08-09 09:59 | ED MED RECONCILIATION SUMMARY ---
Patient: LISA TOURE Medication Reconciliation Report [facility] VisitID: [id number] [place] [address] 35y, M Registration Date/Time: 08/07/2016 Weight: 65.7 kg Height/Length: 70 in. BMI: 20.8 ALLERGIES: Augmentin, Tramadol The patient's Home Medications are listed below: NONE. The source(s) of the original Home Medication information: patient The following Medications were given to the patient in the Emergency Department: None. The following Medications were prescribed to the patient: Naproxen 500 mg tablets: take 1 orally every 12 hours as needed for pain. Dispense twenty (20). No refills. -- Jesse Tejada MD
--- NOTE | 2016-08-09 09:59 | ED DISCHARGE INSTRUCTIONS ---
Patient: LISA TOURE General Instructions [facility] VisitID: [id number] [address] [place] [address] 35y, M Registration Date/Time: 08/07/2016 Contusion to the right hand. INSTRUCTIONS Apply ice for 20 minutes four times a day until better. Don't apply ice directly to skin and don't use while asleep. Warnings: GENERAL WARNINGS: Return or contact your physician immediately if your condition worsens or changes unexpectedly, if not improving as expected, or if other problems arise. Prescription Medications: Naproxen 500 mg tablets: take 1 orally every 12 hours as needed for pain. Dispense twenty (20). No refills. Understanding of the discharge instructions verbalized by patient. Follow-up with: [facility], , , [address], , [place], [id number] Follow up in four days if not better. ADDITIONAL INFORMATION Contusion: Hand You have a CONTUSION of your hand. This causes local pain, swelling and sometimes bruising. There are no broken bones. This injury takes from a few days to a few weeks to heal. Home Care: 1) Keep your arm elevated to reduce pain and swelling. This is very important during the first 48 hours. 2) Apply an ice pack (ice cubes in a plastic bag, wrapped in a towel) over the injured area for 20 minutes every 1-2 hours the first day. You should continue with ice packs 3-4 times a day for the next two days. Continue the use of ice packs for relief of pain and swelling as needed. 3) You may use acetaminophen (Tylenol) or ibuprofen (Motrin, Advil) to control pain, unless another pain medicine was prescribed. [ NOTE : If you have chronic liver or kidney disease or ever had a stomach ulcer or GI bleeding, talk with your doctor before using these medicines.] Follow Up with your doctor or this facility if you are not starting to improve within the next THREE days. [NOTE: If X-rays were taken, they will be reviewed by a radiologist. You will be notified of any new findings that may affect your care.] Get Prompt Medical Attention if any of the following occur: -- Pain or swelling increases -- Redness, warmth or drainage -- Hand or fingers becomes cold, blue, numb or tingly Naproxen Sodium Oral tablet What is this medicine? NAPROXEN (na PROX en) is a non-steroidal anti-inflammatory drug (NSAID). It is used to reduce swelling and to treat pain. This medicine may be used for dental pain, headache, or painful monthly periods. It is also used for painful joint and muscular problems such as arthritis, tendinitis, bursitis, and gout. How should I use this medicine? Take this medicine by mouth with a glass of water. Follow the directions on the prescription label. Take it with food if your stomach gets upset. Try to not lie down for at least 10 minutes after you take it. Take your medicine at regular intervals. Do not take your medicine more often than directed. Long-term, continuous use may increase the risk of heart attack or stroke. A special MedGuide will be given to you by the pharmacist with each prescription and refill. Be sure to read this information carefully each time. Talk to your manager office services regarding the use of this medicine in children. Special care may be needed. What side effects may I notice from receiving this medicine? Side effects that you should report to your doctor or health medicare nurse as soon as possible: black or bloody stools, blood in the urine or vomit blurred vision chest pain difficulty breathing or wheezing nausea or vomiting severe stomach pain skin rash, skin redness, blistering or peeling skin, hives, or itching slurred speech or weakness on one side of the body swelling of eyelids, throat, lips unexplained weight gain or swelling unusually weak or tired yellowing of eyes or skin Side effects that usually do not require medical attention (report to your doctor or health medicare nurse if they continue or are bothersome): constipation headache heartburn What may interact with this medicine? alcohol aspirin cidofovir diuretics lithium methotrexate other drugs for inflammation like ketorolac or prednisone pemetrexed probenecid warfarin What if I miss a dose? If you miss a dose, take it as soon as you can. If it is almost time for your next dose, take only that dose. Do not take double or extra doses. Where should I keep my medicine? Keep out of the reach of children. Store at room temperature between 15 and 30 degrees C (59 and 86 degrees F). Keep container tightly closed. Throw away any unused medicine after the expiration date. What should I tell my health care provider before I take this medicine? They need to know if you have any of these conditions: asthma cigarette smoker drink more than 3 alcohol containing drinks a day heart disease or circulation problems such as heart failure or leg edema (fluid retention) high blood pressure kidney disease liver disease stomach bleeding or ulcers an unusual or allergic reaction to naproxen, aspirin, other NSAIDs, other medicines, foods, dyes, or preservatives or trying to get breast-feeding What should I watch for while using this medicine? Tell your doctor or health medicare nurse if your pain does not get better. Talk to your doctor before taking another medicine for pain. Do not treat yourself. This medicine does not prevent heart attack or stroke. In fact, this medicine may increase the chance of a heart attack or stroke. The chance may increase with longer use of this medicine and in people who have heart disease. If you take aspirin to prevent heart attack or stroke, talk with your doctor or health medicare nurse. Do not take other medicines that contain aspirin, ibuprofen, or naproxen with this medicine. Side effects such as stomach upset, nausea, or ulcers may be more likely to occur. Many medicines available without a prescription should not be taken with this medicine. This medicine can cause ulcers and bleeding in the stomach and intestines at any time during treatment. Do not smoke cigarettes or drink alcohol. These increase irritation to your stomach and can make it more susceptible to damage from this medicine. Ulcers and bleeding can happen without warning symptoms and can cause . You may get drowsy or dizzy. Do not drive, use machinery, or do anything that needs mental alertness until you know how this medicine affects you. Do not stand or sit up quickly, especially if you are an older patient. This reduces the risk of dizzy or fainting spells. This medicine can cause you to bleed more easily. Try to avoid damage to your teeth and gums when you brush or floss your teeth. You have been given the following additional information: Contusion, Hand Naproxen Sodium Oral tablet (Electronically signed by Jesse Tejada MD 08/09/2016 9:59)
--- NOTE | 2016-08-09 09:59 | ED DISCHARGE INSTRUCTIONS ---
Patient: LISA TOURE General Instructions [facility] VisitID: [id number] [address] [place] [address] 35y, M Registration Date/Time: 08/07/2016 Contusion to the right hand. INSTRUCTIONS Apply ice for 20 minutes four times a day until better. Don't apply ice directly to skin and don't use while asleep. Warnings: GENERAL WARNINGS: Return or contact your physician immediately if your condition worsens or changes unexpectedly, if not improving as expected, or if other problems arise. Prescription Medications: Naproxen 500 mg tablets: take 1 orally every 12 hours as needed for pain. Dispense twenty (20). No refills. Understanding of the discharge instructions verbalized by patient. Follow-up with: [facility], , , [address], , [place], [id number] Follow up in four days if not better. ADDITIONAL INFORMATION Contusion: Hand You have a CONTUSION of your hand. This causes local pain, swelling and sometimes bruising. There are no broken bones. This injury takes from a few days to a few weeks to heal. Home Care: 1) Keep your arm elevated to reduce pain and swelling. This is very important during the first 48 hours. 2) Apply an ice pack (ice cubes in a plastic bag, wrapped in a towel) over the injured area for 20 minutes every 1-2 hours the first day. You should continue with ice packs 3-4 times a day for the next two days. Continue the use of ice packs for relief of pain and swelling as needed. 3) You may use acetaminophen (Tylenol) or ibuprofen (Motrin, Advil) to control pain, unless another pain medicine was prescribed. [ NOTE : If you have chronic liver or kidney disease or ever had a stomach ulcer or GI bleeding, talk with your doctor before using these medicines.] Follow Up with your doctor or this facility if you are not starting to improve within the next THREE days. [NOTE: If X-rays were taken, they will be reviewed by a radiologist. You will be notified of any new findings that may affect your care.] Get Prompt Medical Attention if any of the following occur: -- Pain or swelling increases -- Redness, warmth or drainage -- Hand or fingers becomes cold, blue, numb or tingly Naproxen Sodium Oral tablet What is this medicine? NAPROXEN (na PROX en) is a non-steroidal anti-inflammatory drug (NSAID). It is used to reduce swelling and to treat pain. This medicine may be used for dental pain, headache, or painful monthly periods. It is also used for painful joint and muscular problems such as arthritis, tendinitis, bursitis, and gout. How should I use this medicine? Take this medicine by mouth with a glass of water. Follow the directions on the prescription label. Take it with food if your stomach gets upset. Try to not lie down for at least 10 minutes after you take it. Take your medicine at regular intervals. Do not take your medicine more often than directed. Long-term, continuous use may increase the risk of heart attack or stroke. A special MedGuide will be given to you by the pharmacist with each prescription and refill. Be sure to read this information carefully each time. Talk to your wood repatcher regarding the use of this medicine in children. Special care may be needed. What side effects may I notice from receiving this medicine? Side effects that you should report to your doctor or health memory care program director as soon as possible: black or bloody stools, blood in the urine or vomit blurred vision chest pain difficulty breathing or wheezing nausea or vomiting severe stomach pain skin rash, skin redness, blistering or peeling skin, hives, or itching slurred speech or weakness on one side of the body swelling of eyelids, throat, lips unexplained weight gain or swelling unusually weak or tired yellowing of eyes or skin Side effects that usually do not require medical attention (report to your doctor or health memory care program director if they continue or are bothersome): constipation headache heartburn What may interact with this medicine? alcohol aspirin cidofovir diuretics lithium methotrexate other drugs for inflammation like ketorolac or prednisone pemetrexed probenecid warfarin What if I miss a dose? If you miss a dose, take it as soon as you can. If it is almost time for your next dose, take only that dose. Do not take double or extra doses. Where should I keep my medicine? Keep out of the reach of children. Store at room temperature between 15 and 30 degrees C (59 and 86 degrees F). Keep container tightly closed. Throw away any unused medicine after the expiration date. What should I tell my health care provider before I take this medicine? They need to know if you have any of these conditions: asthma cigarette smoker drink more than 3 alcohol containing drinks a day heart disease or circulation problems such as heart failure or leg edema (fluid retention) high blood pressure kidney disease liver disease stomach bleeding or ulcers an unusual or allergic reaction to naproxen, aspirin, other NSAIDs, other medicines, foods, dyes, or preservatives or trying to get breast-feeding What should I watch for while using this medicine? Tell your doctor or health memory care program director if your pain does not get better. Talk to your doctor before taking another medicine for pain. Do not treat yourself. This medicine does not prevent heart attack or stroke. In fact, this medicine may increase the chance of a heart attack or stroke. The chance may increase with longer use of this medicine and in people who have heart disease. If you take aspirin to prevent heart attack or stroke, talk with your doctor or health memory care program director. Do not take other medicines that contain aspirin, ibuprofen, or naproxen with this medicine. Side effects such as stomach upset, nausea, or ulcers may be more likely to occur. Many medicines available without a prescription should not be taken with this medicine. This medicine can cause ulcers and bleeding in the stomach and intestines at any time during treatment. Do not smoke cigarettes or drink alcohol. These increase irritation to your stomach and can make it more susceptible to damage from this medicine. Ulcers and bleeding can happen without warning symptoms and can cause . You may get drowsy or dizzy. Do not drive, use machinery, or do anything that needs mental alertness until you know how this medicine affects you. Do not stand or sit up quickly, especially if you are an older patient. This reduces the risk of dizzy or fainting spells. This medicine can cause you to bleed more easily. Try to avoid damage to your teeth and gums when you brush or floss your teeth. You have been given the following additional information: Contusion, Hand Naproxen Sodium Oral tablet (Electronically signed by Jesse Tejada MD 08/09/2016 9:59)
--- NOTE | 2016-08-09 09:59 | ED MAR SUMMARY ---
..... Medication Administration Record [facility] [address] [place] [address] Patient: LISA TOURE Visit ID: [id number] 35y, M Weight: 65.7 kg Height/Length: 70 in BMI: 20.8 ALLERGIES: Augmentin, Tramadol
--- NOTE | 2016-08-09 09:59 | ED MED RECONCILIATION SUMMARY ---
Patient: LISA TOURE Medication Reconciliation Report [facility] VisitID: [id number] [place] [address] 35y, M Registration Date/Time: 08/07/2016 Weight: 65.7 kg Height/Length: 70 in. BMI: 20.8 ALLERGIES: Augmentin, Tramadol The patient's Home Medications are listed below: NONE. The source(s) of the original Home Medication information: patient The following Medications were given to the patient in the Emergency Department: None. The following Medications were prescribed to the patient: Naproxen 500 mg tablets: take 1 orally every 12 hours as needed for pain. Dispense twenty (20). No refills. -- Jesse Tejada MD
== END 2016-08-07 05:09 | disposition home or self-care (01) ==
LOC: ED SRH 03:42
DX: S60.221A Contusion of right hand, initial encounter (principal); W22.8XXA Striking against or struck by other objects, initial encounter; Y93.89 Activity, other specified; Y92.019 Unspecified place in single-family (private) house as the place of occurrence of the external cause; Y99.8 Other external cause status; F17.210 Nicotine dependence, cigarettes, uncomplicated; Z88.0 Allergy status to penicillin; Z88.5 Allergy status to narcotic agent